=== PATIENT | male | born 1970 | race Caucasian/White ===

== ENCOUNTER 2023-09-20 08:50 | Outpatient (AMB) | payer BC, SELFPAY ==
--- NOTE | 2023-09-20 08:57 | A.OFFVIS_ITS ---
Intake Vital Signs 09/20/23 09:07 Weight 217 lb BP 135/83 Blood Pressure Location Rt brachial Position Sitting Pulse 51 Intake Visit Reasons: Hemorrhoids Intake Note: This patient presents for an assessment for hemorrhoids. Patient c/o; reports some bleeding after bowel movements, reports no straining with bowel movements, reports no constipation. 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 He said he has had hemorrhoids for over 10 years. He says he would periodically have some swelling and bleeding in the past but this was well controlled. However, for the past year, he describes more frequent bleeding with bowel movements. He also describes significant swelling and pain on and off. He denies being constipated. He feels that he had much better control of his symptoms this hemorrhoids before with creams but now, the discomfort and ?nuisance? have been worse. 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[employer] [facility] Medical History Bleeding hemorrhoids Surgical History History of inguinal hernia repair Social History Alcohol intake: current Alcohol intake frequency: holidays/special occasions only Patient Tobacco Use Status: Never used Tobacco Review of Systems Const Denies chills and Denies fever(s) Card Denies chest pain, Denies dyspnea and Denies dyspnea on exertion Resp Denies cough, Denies dyspnea and Denies dyspnea on exertion GI Denies hematochezia and Denies change in bowel habits Denies hematuria and Denies difficulty urinating Musc Denies back pain and Denies limited range of motion Neuro Denies focal weakness and Denies convulsions Psych Denies depression and Denies mood swings Physical Exam Vital Signs: Last Vital Signs Pulse 51 09/20/23 09:07 BP 135/83 09/20/23 09:07 Const General: comfortable and no acute distress Orientation/consciousness: patient oriented x3 Neck Neck: Yes no lymphadenopathy Resp Auscultation: clear to auscultation bilaterally Cardio Rhythm: regular rhythm GI Other: Rectal exam shows external hemorrhoids, left more than the right, no perianal lesions Palpation (GI): Soft to palpation, nontender and no guarding Neuro General: patient oriented x3 Office Procedures Anoscopy He was in johanna-knife position. The anoscope was gently inserted. A full examination of the anal canal was done. He had external internal hemorrhoidal columns, left bigger than the right. There were no other lesions. There was no fissure or ulceration. There was no induration on digital exam. There was no bleeding. [id number] Assessment & Plan Assessment & Plan (1) Bleeding hemorrhoids: Code(s): K64.9 - Unspecified hemorrhoids Plan: He states that his symptoms from his hemorrhoids including bleeding, pain, swelling and discomfort have been worsening. He feels that this has been a big nuisance to him especially with his work. He wants to proceed with hemorrhoidectomy. I explained to him the technique of exam under anesthesia and hemorrhoidectomy. I discussed the risks including but not limited to bleeding, infections, postop pain, as well as the benefits and alternatives. I reviewed with him what to expect postoperatively. He wants to proceed. Coding Level of Care Code New Pt Level 3 (04704) Diagnoses Bleeding hemorrhoids K64.9 CPT Codes Details - CPT: 18794-[id number] ([id number])
[2023-09-20 09:07] VITALS: BP 135/83; PULSE 51
== END 2023-09-20 09:28 | disposition home or self-care (01) ==
PROVIDERS: PCP Family Medicine; Visit Provider Surgery
DX: K64.8 Other hemorrhoids (principal)
CPT/HCPCS: 46600; 99203

== ENCOUNTER → 2023-09-20 08:50 | Outpatient (BNVA) | payer BC, SELFPAY | PROVIDERS: PCP Family Medicine; Visit Provider Surgery | DX: K64.8 Other hemorrhoids (principal); K64.4 Residual hemorrhoidal skin tags | CPT/HCPCS: 46600 ==

== ENCOUNTER 2023-10-27 08:04 | Day surgery (SDC) | payer BC, SELFPAY ==
[2023-10-24 10:38] VITALS: BMI 29.4
--- NOTE | 2023-10-25 13:18 | HO.ANESPROP2 ---
HPI - Anesthesia Eval Consult details Narrative: 53yo M for EUA, Hemorrhoidectomy PMFSH Active Problems Active Problems: All Active Problems Bleeding hemorrhoids (Acute) Past Medical History Medical History Bleeding hemorrhoids Surgical History Surgical History History of inguinal hernia repair Social History Social History Alcohol intake: current Alcohol intake frequency: holidays/special occasions only Patient Tobacco Use Status: Never used Tobacco Meds Allergies Allergy/AdvReac Type Severity Reaction Status Date / Time No Known Allergies Allergy Unverified 09/20/23 09:09 Home Medications ?Medication ?Instructions ?Recorded ?Confirmed ?Last Taken ?Type acetaminophen 500 mg tablet 500 mg PO Q6H PRN Pain 09/20/23 10/24/23 Unknown History (Tylenol Extra Strength) ibuprofen 200 mg tablet 200 mg PO Q6H PRN Pain 09/20/23 10/24/23 Unknown History multivitamin 1 tab PO DAILY 09/20/23 10/24/23 Unknown History Exam Height,Weight and Vital Signs: Height 6 ft Weight 98.43 kg Assessment and Plan Assessment Anesthesia Assessment: Chart Reviewed
[2023-10-27 08:45] VITALS: BP 143/87; PULSE 63; RESP 16; TEMP 36.9; O2SAT 98; BMI 30.2
[2023-10-27] MEDS: Lactated Ringers 1,000 ML 100 ML IVCONT (09:25)
--- NOTE | 2023-10-27 10:03 | P.CONAN_ITS ---
[facility] Active Problems Active Problems: All Active Problems (Updated 09/20/23 @ 09:16 by Tj Tenorio MD) Bleeding hemorrhoids (Acute) Past Medical History Medical History Bleeding hemorrhoids Family History Family history of problems with anesthesia: No Surgical History Surgical History History of inguinal hernia repair History of Problems with Anesthesia: No Social History Social History Alcohol intake: current Alcohol intake frequency: a few times a month Patient Tobacco Use Status: Former Tobacco user Tobacco use type: Cigarette Years Smoked: 1 Use of substances other than those prescribed or required for medical reasons: No Are you DNR?: No Advance Directives: No Advance Directives Information Provided: Yes Meds Allergies Allergy/AdvReac Type Severity Reaction Status Date / Time No Known Allergies Allergy Verified 10/27/23 08:39 Active Medications: Current Medications Fentanyl (Fentanyl Citrate/Pf 100 Mcg/2 Ml Vial) 25 mcg IVPUSH Q5M PRN; Protocol PRN Reason: Pain, Moderate(Pain Scale 4-6) Stop: 10/27/23 14:39 Lactated Ringer's (Lr) 1,000 mls @ 100 mls/hr IVCONT .Q10H ALEJANDRA Last Admin: 10/27/23 09:25 Dose: 100 mls/hr Ondansetron HCl (Ondansetron Hcl 4 Mg/2 Ml Vial) 4 mg IVPUSH ONCE PRN PRN Reason: Nausea and Vomiting Stop: 10/27/23 14:39 Home Medications ?Medication ?Instructions ?Recorded ?Confirmed ?Last Taken ?Type acetaminophen 500 mg tablet 500 mg PO Q6H PRN Pain 09/20/23 10/27/23 Unknown History (Tylenol Extra Strength) ibuprofen 200 mg tablet 200 mg PO Q6H PRN Pain 09/20/23 10/27/23 10/26/23 History multivitamin 1 tab PO DAILY 09/20/23 10/27/23 Unknown History Exam Height,Weight and Vital Signs: Height 6 ft Weight 101.06 kg Last Vital Signs Temp 98.5 F 10/27/23 08:45 Pulse 63 10/27/23 08:45 Resp 16 10/27/23 08:45 BP 143/87 H 10/27/23 08:45 Pulse Ox 98 10/27/23 08:45 O2 Del Method Room Air 10/27/23 08:45 Airway Mallampati Class: I TM Dist: >3cm Neck ROM: Full Loose/Missing/Broken Teeth: No Heart: rrr Lungs: clear Assessment and Plan Final Anesthetic Review Family History of Problems with Anesthesia: No History of Problems with Anesthesia: No NPO: Yes ASA Class: I Final Preanesthetic Review: No Changes in Pt Med Stat, Meds/Allgs Chart Reviewed, Consent Obtained/Reviewed and Anes Risks/Benef Reviewed Patient Risk: Low Procedure Risk: Low Anesthetic Plan Anesthetic Plan: GA Disposition: Standard PACU
--- NOTE | 2023-10-27 10:03 | MHC.SHP ---
Pre-Procedural Eval Section A - 24 Hr Update-Section A only Date of Service: 10/27/23 Section B - Complete if H&P > 30 days Chief Complaint: Unspecified hemorrhoids Details of Present Illness: Has had bleeding from hemorrhoids Relevant Family History (Specify if Yes): No Relevant Social History: None Present Medications: see Short Stay Collaborative assessment Medical History: No relevant PMH History of Previous Operations: No relevant previous surgery Allergies: Allergies Allergy/AdvReac Type Severity Reaction Status Date / Time No Known Allergies Allergy Verified 10/27/23 08:39 Review of Systems Sugical H&P ROS: Negative: Constitution, Cardiovascular, Respiratory, Neurological, Psychiatric, Hem-Onc, Allergic/Immunologic, Genitourinary, Musculoskeletal, Integumentary, Endocrine and Eyes/Ears/Nose/Throat and Yes, Specify: Gastrointestinal (Bleeding per rectum) Exam Surgical H&P Exam: Normal: HEENT, Normal: Heart, Normal: Lungs, Normal: Extremities, Normal: Abdomen, Normal: Skin and Normal: Neurological Exam Comment: Internal external hemorrhoids left and right Plan Diagnosis/Plan: Unchanged I have reviewed the history and physical and performed a pertinent physical examination on my patient. No changes have occurred unless specified. Time Spent With Patient Time: Total time managing care of this patient today ____ minutes.
--- NOTE | 2023-10-27 10:09 | PC.NURSE ---
Patient in preop. Took ibuprofen yesterday. Dr. Tenorio at bedside and made aware. No issues, may proceed with surgery.
--- NOTE | 2023-10-27 11:16 | P.OP_ITS ---
Operative Note Operative Note Date of Service: 10/27/23 Narrative: Preop diagnosis: Bleeding hemorrhoids Postop diagnosis: Bleeding hemorrhoids, internal external Procedure: Exam under anesthesia hemorrhoidectomy x2 columns Surgeon: Tj Tenorio MD The patient is a 53-year-old male with a long history of bleeding hemorrhoids. He therefore wanted to proceed with hemorrhoidectomy. He understood the technique of the planned procedure as well as the risks, benefits, and alter natives He was brought to the operating room. He was placed in prone johanna-knife position under general anesthesia via endotracheal tube. A surgical time-out was done. The buttocks were retracted with wide tape laterally. The perianal area was prepped and draped in the usual sterile fashion. I infiltrated the perianal area with lidocaine 1%. Examination of the anal orifice revealed external hemorrhoids on both the left and right side that appeared prominent I inserted the Berto Hernandez retractor and examined the anal canal circumferentially. Hemorrhoidal columns on the left and right side were seen, as a mix of both internal external. There were no other lesions. There was no fissure ulceration I applied a Griggs grasper at the hemorrhoidal column on the left to retract this into the field. I made a kzzhed-qi-[id number] stitch at the pedicle using a chromic 3-0. I made an incision around this hemorrhoidal column to the perianal skin with a blade 15. I excised this hemorrhoidal column above the plane of the sphincters along this incision using Metzenbaum scissors. It was incisional running chromic 3-0 stitch with additional hemostatic [id number] sutures placed for oozing areas I retracted the hemorrhoidal column on the right with a Griggs grasper. I applied a syzkut-tz-fibjl stitch at its pedicle. I made an incision around this column with a blade 15. I excised this hemorrhoidal column above the plane of the sphincters using scissors. I closed the incision with a running chromic 3-0 stitch with additional hemostatic sutures placed I observed for hemostasis. Once hemostasis was confirmed, I infiltrated the perianal area with Marcaine 0.5% for postop analgesia The procedure was completed The patient tolerated the procedure well. There were no immediate complications. Initial and final counts of sponges and instruments were correct. Estimated blood loss about 25 cc. The patient was extubated without difficulty and transferred to the recovery room with stable vital signs.
[2023-10-27 11:25] VITALS: BP 154/92; PULSE 71; RESP 18; TEMP 36.5; O2SAT 98
[2023-10-27 11:30] VITALS: BP 149/93; PULSE 60; RESP 18; O2SAT 96
[2023-10-27 11:35] VITALS: BP 137/86; PULSE 53; RESP 18; O2SAT 97
[2023-10-27 11:40] VITALS: BP 146/90; PULSE 60; RESP 18; O2SAT 97
[2023-10-27 11:55] VITALS: BP 145/59; PULSE 51; RESP 16; TEMP 36.5; O2SAT 96
== END 2023-10-27 15:22 | disposition home or self-care (01) ==
PROVIDERS: PCP Family Medicine; Visit Provider Surgery
PROC: (CPT 46260; principal; 2023-10-27 10:50)
DX: K64.8 Other hemorrhoids (principal); Z79.1 Long term (current) use of non-steroidal anti-inflammatories (NSAID); Z79.899 Other long term (current) drug therapy; Z98.890 Other specified postprocedural states; Z87.891 Personal history of nicotine dependence
CPT/HCPCS: 46260; 88304; J0131; J1100; J1885; J2250; J2405; J2704; J2795; J3010

== ENCOUNTER → 2023-10-27 08:04 | Outpatient (BNV) | payer BC, SELFPAY | PROVIDERS: PCP Family Medicine; Visit Provider Surgery | DX: K64.8 Other hemorrhoids (principal) | CPT/HCPCS: 46260 ==

== ENCOUNTER 2023-11-09 08:52 | Outpatient (AMB) | payer BC, SELFPAY ==
--- NOTE | 2023-11-09 08:53 | MHC.OFFVIS ---
Vital Signs 11/09/23 08:58 Weight 217 lb BP 143/88 H Blood Pressure Location Rt brachial Position Sitting Pulse 63 Intake Visit Reasons: S/P hemorrhoidectomy Intake Note: This patient presents for a post-op assessment status post hemorrhoidectomy. Pt c/o; reports no complaints. 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 He tolerated the procedure well. He says he is doing well postoperatively. He says that he has not been taking his pain medications anymore. He has good bowel movements. [facility] Medical History Bleeding hemorrhoids Surgical History History of hemorrhoidectomy (~10/27/23) History of inguinal hernia repair Social History Alcohol intake: current Alcohol intake frequency: a few times a month Patient Tobacco Use Status: Former Tobacco user Tobacco use type: Cigarette Years Smoked: 1 Review of Systems Const Denies chills and Denies fever(s) Card Denies chest pain, Denies dyspnea and Denies dyspnea on exertion Resp Denies cough, Denies dyspnea and Denies dyspnea on exertion GI Reports hematochezia and Denies change in bowel habits Denies hematuria and Denies difficulty urinating Musc Denies back pain and Denies limited range of motion Neuro Denies focal weakness and Denies convulsions Psych Denies depression and Denies mood swings Physical Exam Vital Signs: Last Vital Signs Pulse 63 11/09/23 08:58 BP 143/88 H 11/09/23 08:58 Const General: comfortable and no acute distress GI Other: Rectal exam shows the hemorrhoidectomy sites to be well healing, no signs of infection, discharge Assessment & Plan Assessment & Plan (1) Bleeding hemorrhoids: Code(s): K64.9 - Unspecified hemorrhoids Category: Medical Plan: Status post hemorrhoidectomy x2 columns. He is doing very well. His incisions are healing well. He is cleared to return to work starting 11/20/2023 without restrictions. He can follow up in the office on a p.r.n. basis. Coding Level of Care Code Global (12252) Diagnoses Bleeding hemorrhoids K64.9
[2023-11-09 08:58] VITALS: BP 143/88; PULSE 63
== END 2023-11-09 09:05 | disposition home or self-care (01) ==
PROVIDERS: PCP Family Medicine; Visit Provider Surgery
DX: K64.9 Unspecified hemorrhoids (principal)
CPT/HCPCS: 99024

== ENCOUNTER → 2023-11-09 08:52 | Outpatient (BNVA) | payer BC, SELFPAY | PROVIDERS: PCP Family Medicine; Visit Provider Surgery ==